=== PATIENT | female | born 1960 | race Caucasian/White ===

== ENCOUNTER 2017-08-06 21:31 | Observation (INO) | payer BC ==
[~2017-08-06] VITALS: Ht 177.8 cm; Wt 104.3 kg
[~2017-08-06 21:31] MED LIST: ACID CONTROL150 MG PO; ASPIRIN325 MG PO; BUSPAR10 MG PO; CELEBREX100 MG PO; CIPRO500 MG PO; DICYCLOMINE HCL20 MG PO; EFFEXOR XR150 MG PO; ESCITALOPRAM OX20 MG PO; FLEXERIL10 MG PO; FLONASE16 G1 BOTH NARES; FLORASTOR250 MG PO; GABAPENTIN100 MG PO; HYDROCODON-ACE1 EAC7 PO; HYDROXYZINE PAM25 MG PO; HYSINGLA ER30 MG PO; LEXAPRO20 MG PO; LISINOPRIL10 MG PO; LYRICA100 MG PO; METRONIDAZOLE500 MG PO; MOBIC7.5 MG PO; MULTIVITAMIN1 EAC2 PO; NORCO 5/3251 TABLET PO; PANTOPRAZOLE SO40 MG PO; PRINIVIL10 MG PO; SIMVASTATIN20 MG PO; SIMVASTATIN40 MG PO; SINGULAIR10 MG PO; TOPICAL CREAM; ULTRACET1 TABLET PO; VENTOLIN HFA18 GM IH; VOLTAREN-XR100 MG PO; ZOCOR40 MG PO
[2017-08-07 08:55] VITALS: BP 128/67
[2017-08-07 09:04] VITALS: BP 128/67
[2017-08-07 15:00] VITALS: BP 124/58
[2017-08-07 20:00] VITALS: BP 134/65
[2017-08-07 23:55] VITALS: BP 132/68
[2017-08-08 03:57] VITALS: BP 137/73
[2017-08-08 06:50] VITALS: BP 126/67
[2017-08-08 12:15] VITALS: BP 112/62
[2017-08-08 15:47] VITALS: BP 120/62
[2017-08-08] MEDS ORDERED: ZANAFLEX4 MG PO (17:57)
[2017-08-08] MEDS ORDERED: NORCO 5/3251 TABLET PO (17:57)
[2017-08-08] MEDS ORDERED: PROMETHAZINE HC25 M1 PO (17:57)
== END 2017-08-08 18:09 | disposition home or self-care (01) ==
LOC: ENRESERV 21:31 → 2SOUTH 08-07 08:02 → 2EAST 08-07 08:27 → 2SOUTH 08-07 08:27 → ENRESERV 08-07 13:21 → 2EAST 08-07 14:58
DX: M48.02 Spinal stenosis, cervical region (principal); M47.12 Other spondylosis with myelopathy, cervical region; M40.202 Unspecified kyphosis, cervical region; M50.20 Other cervical disc displacement, unspecified cervical region; M54.12 Radiculopathy, cervical region; Z88.0 Allergy status to penicillin; Z88.5 Allergy status to narcotic agent; Z88.8 Allergy status to other drugs, medicaments and biological substances
CPT/HCPCS: 72020; 76000; 86850; 86900; 86901; C1713; G0378; J2250; J2405; J2710; J3010; J3370; J3480; J7643